=== PATIENT | female | born 1935 | race Caucasian/White ===

== ENCOUNTER 2017-08-14 18:15 | Emergency (ER) | payer OTHER ==
[~2017-08-14] VITALS: Ht 167.6 cm; Wt 79.8 kg
[2017-08-14 18:15] VITALS: BP 126/63
--- NOTE | 2017-08-14 18:15 | NUR ---
PT BIBA TO BED 10.
--- NOTE | 2017-08-14 18:30 | NUR ---
ER MD DR. ANGELES AT BEDSIDE WITH RT, PRIMARY NURSE, EMT FOR INTUBATION.
[2017-08-14] MEDS ORDERED: PROPOFOL 200 MG/20 ML VIAL IV ONE (18:32)
[2017-08-14] MEDS ORDERED: PROPOFOL 1000 MG/100 ML PREMIX 100 ML IV ONE (18:33)
[2017-08-14] MEDS ORDERED: ALBUTEROL SULFATE/IPRATROPIU 3 ML SOL IH ONE (18:35)
[2017-08-14] MEDS ORDERED: DEXAMETHASONE 10 MG/ML VIAL IVP ONE (18:35)
--- NOTE | 2017-08-14 18:35 | NUR ---
ASSISTED DR ANGELES WITH INTUBATION, SIZE 7.5 ETT SUCCESSFULLY PLACED AT 21 CM AT THE LIP, DR CONFIRMED PLACEMENT BY AUSCULTATION AND XRAY, PATIENT PLACED ON VENT AT DOCUMENTED SETTINGS GIVEN BY DR, ABG OBTAINED AND RESULTS GIVEN TO
[2017-08-14 18:40] VITALS: BP 180/66
--- NOTE | 2017-08-14 18:40 | NUR ---
1839-Er md Gotti, Henry Todd RN, Cynthia KELLEY, Bright EMT, RT by bedside. Pt in asystole 1841-Atropine given 1842-Epi given 1844-pulse check/pt still in asystole/ compression continued 1845-Epi given 1845-Bicarb given 1847-Pulse check- vitals as follows--[id number], 180/60
[2017-08-14 19:14] LABS: BASOPHILS # (AUTO) 0.2 K/uL (0.00-0.22); BASOPHILS % (AUTO) 1.5 % (0.0-2.0); EOSINOPHILS # (AUTO) 0.1 K/uL (0-0.4); EOSINOPHILS % (AUTO) 0.4 % (0.0-4.0); HEMATOCRIT 26.6 % (36-48); HEMOGLOBIN 8.6 g/dL (12.0-16.0); LYMPHOCYTES # (AUTO) 1.8 K/uL (2.5-16.5); LYMPHOCYTES % (AUTO) 12.7 % (20.5-51.1); MEAN CORPUSCULAR HEMOGLOBIN 29 pg (27-31); MEAN CORPUSCULAR HGB CONC 33 g/dL (33-37); MEAN CORPUSCULAR VOLUME 88 fL (80-94); MONOCYTES # (AUTO) 0.5 K/uL (0.8-1.0); MONOCYTES % (AUTO) 3.6 % (1.7-9.3); NEUTROPHILS # (AUTO) 11.6 K/uL (1.8-7.7); NEUTROPHILS % (AUTO) 81.8 % (42.2-75.2); PLATELET COUNT (AUTO) 327 K/uL (140-450); RED BLOOD CELL COUNT(AUTO) 3.03 MIL/uL (4.20-5.40); RED CELL DISTRIBUTION WIDTH 14.5 % (11.6-13.7); WHITE BLOOD COUNT (AUTO) 14.2 K/uL (4.8-10.8)
[2017-08-14 19:15] VITALS: BP 104/58
[2017-08-14] MEDS ORDERED: ASPIRIN 600 MG SUPP RC ONE (19:15)
--- NOTE | 2017-08-14 19:15 | NUR ---
Patient to be transferred to [facility], [place] [facility]. Is being transferred due to . Receiving facility has accepting physician and available space. ER physician has signed transfer form. Patient or responsible constitution party has agreed to transfer and signed form. Patient belongings inventoried and will be sent with patient. Copy of nursing notes, lab reports, EKG, Physicians Orders and X-rays to be sent with patient. Report called to at receiving facility. ambulance service has been called for transfer. ACCOMPANIED BY WARREN SUNSHINE AND LANDON.
[2017-08-14 19:44] LABS: ALBUMIN 1.4 g/dL (3.4-5.0); ANION GAP 13.4 (8-16); ASPARTATE AMINOTRANSFERASE 45 U/L (15-37); CARBON DIOXIDE 24.2 mmol/L (21-32); CHLORIDE 100 mmol/L (98-107); CREATININE 3.1 mg/dL (0.6-1.3); GLUCOSE 197 mg/dL (74-106); POTASSIUM 3.6 mmol/L (3.5-5.1); SODIUM SERUM 134 mmol/L (136-145); TOTAL BILIRUBIN 0.4 mg/dL (0.0-1.0)
[2017-08-14 19:45] LABS: UREA NITROGEN, BLOOD 78 mg/dL (7-18)
[2017-08-14] MEDS ORDERED: ETOMIDATE 20 MG/10 ML VIAL IVP ONE (19:45)
[2017-08-14] MEDS ORDERED: ROCURONIUM 50 MG/5 ML VIAL IV ONE (19:45)
[2017-08-14 19:46] LABS: MAGNESIUM 2.5 mg/dL (1.8-2.4)
--- NOTE | 2017-08-15 04:28 | NUR ---
FOUND PT DENTURE, ORACLE FUSION DEVELOPER MADE AWARE, GIVEN TO SECURITY.
== END 2017-08-14 19:15 | disposition short-term general hospital (02) ==
LOC: MED 18:15
DX: I21.3 ST elevation (STEMI) myocardial infarction of unspecified site (principal); N18.9 Chronic kidney disease, unspecified; J96.00 Acute respiratory failure, unspecified whether with hypoxia or hypercapnia; I50.9 Heart failure, unspecified; Z88.8 Allergy status to other drugs, medicaments and biological substances
CPT/HCPCS: 31500; 36415; 36600; 71045; 80053; 82803; 82948; 83605; 83690; 83735; 83880; 84484; 85025; 85379; 85610; 85730; 87040; 92950; 94640; 99291; J2704; J3490; J7030; J7620